=== PATIENT | male | born 1995 | race Two or more races ===

== ENCOUNTER 2019-09-28 15:27 | Inpatient (IN) | payer MEDICAID ==
[~2019-09-28] VITALS: Ht 170.2 cm; Wt 52.8 kg
[2019-09-28] MEDS ORDERED: SODIUM CHLORIDE 0.9% 1,000 ML IV ONE ×2 (16:35→18:54)
[2019-09-28] MEDS ORDERED: ACETAMINOPHEN 650MG SUPP PR STA (16:35)
[2019-09-28] MEDS ORDERED: OXCARBAZEPINE 300MG TABLET PO STA (16:49)
[2019-09-28] MEDS ORDERED: LORAZEPAM 2MG/ML CPJ IV ONE (17:00)
[2019-09-28] MEDS ORDERED: LEVETIRACETAM 500MG PREMIX 100 ML IV ONE (17:30)
[2019-09-28] MEDS ORDERED: LEVETIRACETAM 1,500 MG in SODIUM CHLORIDE 0.9% 100 ML IV NR (18:00)
[2019-09-28 18:29] LABS: HEMATOCRIT. 41.5 % (42.0-52.0); MEAN CORPUSCULAR HEMOGLOBIN 30.1 pg (28.0-32.0); MEAN CORPUSCULAR VOLUME 89.3 fL (80.0-94.0); MEAN PLATELET VOLUME 8.8 fl (7.4-10.4); PLATELET 203 x1000/uL (130-400); RED BLOOD CELL COUNT 4.64 mill/uL (4.7-6.1); RED CELL DISTRIBUTION WIDTH 14.4 % (11.6-14.6)
[2019-09-28 18:32] LABS: CHLORIDE 105 mEq/L (98-107)
[2019-09-28 18:41] LABS: CREATINE KINASE 154 IU/L (39-308)
[2019-09-28] MEDS ORDERED: CEFTRIAXONE 1 G PREMIX 50 ML IV ONE (19:15)
[2019-09-28] MEDS ORDERED: AZITHROMYCIN 500 MG in DEXT 5% WATER 250 ML IV ONE (19:15)
[2019-09-28] MEDS ORDERED: DOCUSATE SODIUM 100MG CAPSULE PO PRN (19:45)
[2019-09-28] MEDS ORDERED: ACETAMINOPHEN 325MG TABLET PO PRN ×2 (19:45)
[2019-09-28] MEDS ORDERED: ZOLPIDEM TARTRATE 5MG TABLET PO PRN (19:45)
[2019-09-28] MEDS ORDERED: IPRATROPIUM/ALBUTEROL 0.5-3(2.5)MG/3ML NEB ORI PRN (19:45)
[2019-09-28] MEDS ORDERED: GUAIFENESIN 200MG/10ML SUGAR FREE UDC PO PRN (19:45)
[2019-09-28] MEDS ORDERED: LORAZEPAM 2MG/ML CPJ IV PRN (19:45)
[2019-09-28] MEDS ORDERED: NITROGLYCERIN 0.4MG TABLET SL SL PRN (19:45)
[2019-09-28] MEDS ORDERED: KETOROLAC 15MG/ML VIAL IV PRN (19:45)
[2019-09-28] MEDS ORDERED: ONDANSETRON HCL 4MG/2ML INJ IV PRN (19:45)
[2019-09-28] MEDS ORDERED: CLONIDINE 0.1MG TABLET PO PRN (19:45)
[2019-09-28] MEDS ORDERED: MAGNESIUM/ALUMINUM HYDROXIDE/SIMETHICONE 30ML UDC PO PRN (19:45)
[2019-09-28 19:47] LABS: PLATELET ESTIMATE NORMAL
[2019-09-28] MEDS: PIPERACILLIN/TAZOBACTAM 3.375 G in DEXT 5% WATER 100 ML IV SCH (20:00)
[2019-09-28 20:25] LABS: CLARITY URINE CLEAR (CLEAR); COLOR URINE YELLOW (YELLOW); KETONES URINE 1+ (NEGATIVE); LEUKOCYTE ESTERASE URINE NEGATIVE (NEGATIVE); NITRITE URINE NEGATIVE (NEGATIVE); OCCULT BLOOD URINE NEGATIVE (NEGATIVE); PROTEIN URINE TRACE (NEGATIVE); SPECIFIC GRAVITY URINE 1.019 (1.005-1.030); UROBILINOGEN URINE 0.2 E.U./dL (0.2-1.0)
[2019-09-28 20:43] LABS: *AMPHETAMINES SCREEN URINE NEGATIVE (NEGATIVE); *BARBITURATES SCREEN URINE NEGATIVE (NEGATIVE); *BENZODIAZEPINES SCREEN URINE NEGATIVE (NEGATIVE); *COCAINE SCREEN URINE NEGATIVE (NEGATIVE); METHADONE URINE SCREEN NEGATIVE (NEGATIVE); OPIATES URINE SCREEN NEGATIVE (NEGATIVE)
[2019-09-28 20:44] LABS: CANNABINOID URINE SCREEN PRESUMTIVE POSITIVE (NEGATIVE); PHENCYCLIDINE URINE SCREEN NEGATIVE (NEGATIVE)
[2019-09-28] MEDS: ASCORBIC ACID 500 MG TABLET PO SCH (21:00)
[2019-09-28] MEDS: FAMOTIDINE 20MG TABLET PO SCH (21:00)
[2019-09-28] MEDS: ENOXAPARIN 40MG/0.4ML SYR SUBCUT SCH (21:00)
[2019-09-29] MEDS: PIPERACILLIN/TAZOBACTAM 3.375 G in DEXT 5% WATER 100 ML IV SCH ×3 (05:30→23:52)
[2019-09-29] MEDS: ZINC SULFATE 220 MG ( 50 ) CAPSULE PO SCH (09:00)
[2019-09-29] MEDS: ASCORBIC ACID 500 MG TABLET PO SCH ×2 (09:00→21:00)
[2019-09-29] MEDS: FAMOTIDINE 20MG TABLET PO SCH ×2 (09:00→21:00)
[2019-09-29] MEDS ORDERED: LEVETIRACETAM 500MG PREMIX 100 ML IV SCH (09:00)
[2019-09-29] MEDS: OXCARBAZEPINE 300MG TABLET PO SCH ×2 (09:00→21:00)
[2019-09-29 17:18] VITALS: BP 106/58
[2019-09-29 20:00] VITALS: BP 109/43
[2019-09-29] MEDS: ENOXAPARIN 40MG/0.4ML SYR SUBCUT SCH (22:43)
[2019-09-30] VITALS: BP 119/68
[2019-09-30] MEDS: LEVETIRACETAM 500MG PREMIX 100 ML IV SCH ×3 (02:16→22:04)
[2019-09-30 04:00] VITALS: BP 103/57
[2019-09-30] MEDS: PIPERACILLIN/TAZOBACTAM 3.375 G in DEXT 5% WATER 100 ML IV SCH ×3 (05:24→17:30)
[2019-09-30] MEDS: FAMOTIDINE 20MG TABLET PO SCH ×2 (08:15→21:04)
[2019-09-30] MEDS: OXCARBAZEPINE 300MG TABLET PO SCH ×2 (08:15→21:04)
[2019-09-30] MEDS: ASCORBIC ACID 500 MG TABLET PO SCH ×2 (08:15→21:04)
[2019-09-30] MEDS: ZINC SULFATE 220 MG ( 50 ) CAPSULE PO SCH (08:15)
[2019-09-30 20:00] VITALS: BP 105/58
[2019-09-30] MEDS: ENOXAPARIN 40MG/0.4ML SYR SUBCUT SCH (21:04)
[2019-10-01] VITALS: BP 106/56
[2019-10-01] MEDS: PIPERACILLIN/TAZOBACTAM 3.375 G in DEXT 5% WATER 100 ML IV SCH ×4 (00:16→17:43)
[2019-10-01 04:00] VITALS: BP 109/63
[2019-10-01 08:00] VITALS: BP 111/62
[2019-10-01] MEDS: OXCARBAZEPINE 300MG TABLET PO SCH ×2 (08:48→22:25)
[2019-10-01] MEDS: LEVETIRACETAM 500MG PREMIX 100 ML IV SCH ×2 (08:48→22:26)
[2019-10-01] MEDS: ZINC SULFATE 220 MG ( 50 ) CAPSULE PO SCH (08:48)
[2019-10-01] MEDS: FAMOTIDINE 20MG TABLET PO SCH ×2 (09:00→22:13)
[2019-10-01] MEDS: ASCORBIC ACID 500 MG TABLET PO SCH ×2 (09:14→22:13)
[2019-10-01 12:00] VITALS: BP 99/61
[2019-10-01 16:00] VITALS: BP 109/68
[2019-10-01 20:00] VITALS: BP 105/64
[2019-10-01] MEDS: ENOXAPARIN 40MG/0.4ML SYR SUBCUT SCH (22:13)
[2019-10-02] VITALS: BP 95/64
[2019-10-02] MEDS: PIPERACILLIN/TAZOBACTAM 3.375 G in DEXT 5% WATER 100 ML IV SCH ×5 (00:20→23:14)
[2019-10-02 04:00] VITALS: BP 92/54
[2019-10-02 09:00] VITALS: BP 90/56
[2019-10-02] MEDS: ZINC SULFATE 220 MG ( 50 ) CAPSULE PO SCH (10:15)
[2019-10-02] MEDS: ASCORBIC ACID 500 MG TABLET PO SCH ×2 (10:15→20:35)
[2019-10-02] MEDS: OXCARBAZEPINE 300MG TABLET PO SCH ×2 (10:15→20:35)
[2019-10-02] MEDS: LEVETIRACETAM 500MG PREMIX 100 ML IV SCH ×2 (10:17→20:35)
[2019-10-02] MEDS: FAMOTIDINE 20MG TABLET PO SCH ×2 (10:19→20:46)
[2019-10-02 12:00] VITALS: BP 87/48
[2019-10-02 16:00] VITALS: BP 94/56
[2019-10-02 20:00] VITALS: BP 102/68
[2019-10-02 20:23] LABS: HEMATOCRIT. 40.3 % (42.0-52.0); HEMOGLOBIN. 14.1 g/dL (14.0-18.0); LYMPHOCYTES % 41.7 % (20.0-50.0); MEAN PLATELET VOLUME 9.2 fl (7.4-10.4); MONOCYTES % 9.1 % (2.0-8.0); NEUTROPHILS % 47.2 % (40.0-76.0); PLATELET 209 x1000/uL (130-400); RED BLOOD CELL COUNT 4.53 mill/uL (4.7-6.1); RED CELL DISTRIBUTION WIDTH 14.4 % (11.6-14.6)
[2019-10-02 20:24] LABS: CHLORIDE 109 mEq/L (98-107)
[2019-10-02] MEDS: ENOXAPARIN 40MG/0.4ML SYR SUBCUT SCH (20:35)
[2019-10-03] VITALS: BP 108/55
[2019-10-03 04:00] VITALS: BP 104/68
[2019-10-03] MEDS: PIPERACILLIN/TAZOBACTAM 3.375 G in DEXT 5% WATER 100 ML IV SCH ×2 (06:05→12:53)
[2019-10-03 08:00] VITALS: BP 94/64
[2019-10-03] MEDS: LEVETIRACETAM 500MG PREMIX 100 ML IV SCH (09:55)
[2019-10-03] MEDS: ZINC SULFATE 220 MG ( 50 ) CAPSULE PO SCH (09:55)
[2019-10-03] MEDS: ASCORBIC ACID 500 MG TABLET PO SCH (09:56)
[2019-10-03] MEDS: OXCARBAZEPINE 300MG TABLET PO SCH (09:56)
[2019-10-03] MEDS ORDERED: FAMOTIDINE 10MG TABLET PO SCH (11:45)
[2019-10-03 12:00] VITALS: BP 105/68
[2019-10-03 15:40] VITALS: BP 97/55
== END 2019-10-03 16:45 | disposition home or self-care (01) | DRG 720 ==
LOC: ER 15:27 → MICUSO 18:53 → EDBD 18:53 → EDBEDREQ 18:58 → EDBEDREQTM 18:58 → 7WST 09-29 17:35 → 5WST 09-30 11:54
PROVIDERS: ADMIT Internal Medicine; ATTEND Internal Medicine
DX: A41.9 Sepsis, unspecified organism (principal); J96.00 Acute respiratory failure, unspecified whether with hypoxia or hypercapnia; G92 Toxic encephalopathy; E83.51 Hypocalcemia; G40.901 Epilepsy, unspecified, not intractable, with status epilepticus; J69.0 Pneumonitis due to inhalation of food and vomit; Z20.828 Contact with and (suspected) exposure to other viral communicable diseases; Z79.899 Other long term (current) drug therapy; Z87.820 Personal history of traumatic brain injury; Z98.2 Presence of cerebrospinal fluid drainage device
CPT/HCPCS: 36415; 71045; 80048; 80053; 80061; 80305; 81003; 82550; 83036; 83605; 85025; 93005; 93306; 93970; 99291; J0456; J0696; J1650; J1953; J2060; J2543; J7030; J7050; J7060; U0003-CS